=== PATIENT | male | born 1975 | race Caucasian/White ===

== ENCOUNTER 2017-05-17 12:55 | Emergency (ER) | payer MEDICAID ==
[~2017-05-17] VITALS: Ht 167.6 cm; Wt 75.0 kg
[2017-05-17 12:59] VITALS: Ht 167.6 cm; Wt 75.0 kg
[2017-05-17] MEDS ORDERED: KETOROLAC 30 MG INJ IV STA (13:55)
--- NOTE | 2017-05-17 14:34 | RADRPT ---
PROCEDURE: CT Abdomen and Pelvis without contrast. CLINICAL INDICATION: Periumbilical pain. TECHNIQUE: CT scan of the abdomen and pelvis without contrast was performed on a multi-detector hi gh-resolution CT scanner. Coronal and sagittal reformatted images were obtained from the axial sour ce images. Images were reviewed on a high-resolution PACS workstation. The total exam CTDI equals 12 .0 mGy and the total exam DLP equals 704 mGy-cm. One or more of the following dose reduction techniques were utilized: - Automated exposure control - Adjustment of the mA and/or kV according to patient size - Use of iterative reconstruction technique COMPARISON: None. FINDINGS: Lower Chest: There is no basilar consolidation or effusion. The heart is within normal limits in si ze. A patent foramen ovale is noted (series 3, image 8). Hepatobiliary: There is diffuse fatty infiltration of the liver. The gallbladder is present. There is no intrahepatic or extrahepatic biliary dilatation. Spleen: Unremarkable. Pancreas: Unremarkable. Adrenal Glands: Unremarkable. Kidneys: Unremarkable. Bowel: There is variant intestine malrotation with the small bowel located predominately within the right hemiabdomen and the colon predominately in the left hemiabdomen. There is sigmoid diverticulos is with associated bowel wall thickening and adjacent inflammatory stranding consistent with diverti culitis. No drainable fluid collection is identified. No bowel obstruction. The appendix is unremar kable. Pelvic Organs: The prostate contains a calcification. Peritoneum/Mesentery: Unremarkable. No pathologically enlarged lymph nodes. Bones/Soft Tissues: There are mild degenerative changes of the spine and right sacroiliac joint. Other: N/A. IMPRESSION: 1. Acute sigmoid diverticulitis. No drainable fluid collection identified. 2. Variant intestinal malrotation with small bowel located predominately within the right hemiabdom en and colon predominately in the left hemiabdomen. 3. Hepatic steatosis. RPTAT:AAJJ Physician Quyen Date Time Electronically viewed and signed by Physician Quyen on 05/17/2017 14:34 QL/
--- NOTE | 2017-05-17 15:25 | ERD ---
ER Documentation Chief Complaint Chief Complaint abdominal pain x 2 days HPI This is a 32-year-old male who presents emergency department today complaining of lower abdominal pain that started yesterday. Patient states he thinks he had a fever yesterday. States he has a history of constipation and feels constipated at this time. States he was given pills by his primary care clinic but is unsure of the name. Denies any nausea vomiting. Denies any dysuria, hematuria. Denies any testicular pain. ROS All systems reviewed and are negative except as per history of present illness. Medications Home Meds Active Scripts Acetaminophen* (Tylophen*) 500 Mg Capsule, 1 CAP PO Q6H Y for PAIN AND OR ELEVATED TEMP, #30 CAP Prov:JEAN PAUL LAZO PA-C 05/17/17 Ciprofloxacin Hcl* (Ciprofloxacin Hcl*) 500 Mg Tablet, 500 MG PO BID for 10 Days , TAB Prov:JEAN PAUL LAZO PA-C 05/17/17 Metronidazole* (Flagyl*) 500 Mg Tablet, 500 MG PO TID for 10 Days, TAB Prov:JEAN PAUL LAZO PA-C 05/17/17 Naproxen* (Naprosyn*) 500 Mg Tablet, 500 MG PO BID Y for PAIN AND/OR INFLAMMATION, #30 TAB Prov:JEAN PAUL LAZO PA-C 05/17/17 Docusate Sodium* (Colace*) 100 Mg Capsule, 100 MG PO TID, #30 CAP Prov:JEAN PAUL LAZO PA-C 05/17/17 Polyethylene Glycol* (Miralax*) 17 Gm Powd.pack, 17 GM PO DAILY, #15 Prov:JEAN PAUL LAZO PA-C 05/17/17 Allergies Allergies: Coded Allergies: No Known Allergy (Unverified , 05/17/17) PMhx/Soc Medical and Surgical Hx: pt denies Medical Hx, pt denies Surgical Hx Hx Alcohol Use: No Hx Substance Use: No Hx Tobacco Use: No Smoking Status: Never smoker Physical Exam Vitals Vital Signs Date Time Temp Pulse Resp B/P Pulse Ox O2 Delivery O2 Flow Rate FiO2 05/17/17 12:59 98.3 68 18 140/90 96 Physical Exam Const: NAD Head: Atraumatic Eyes: Normal Conjunctiva ENT: Normal External Ears, Nose and Mouth. Neck: Full range of motion..~ No meningismus. Resp: Clear to auscultation bilaterally Cardio: Regular rate and rhythm, no murmurs Abd: Soft, left lower quadrant pain non distended. Normal bowel sounds. No tenderness at McBurney's Skin: No petechiae or rashes Back: No midline or flank tenderness Ext: No cyanosis, or edema Neur: Awake and alert Psych: Normal Mood and Affect Result Diagram: 05/17/17 1410 05/17/17 1410 Results 24 hrs Laboratory Tests Test 05/17/17 14:10 White Blood Count 11.510^3/ul Red Blood Count 5.1110^6/ul Hemoglobin 15.4g/dl Hematocrit 44.2% Mean Corpuscular Volume 86.5fl Mean Corpuscular Hemoglobin 30.1pg Mean Corpuscular Hemoglobin Concent 34.8g/dl Red Cell Distribution Width 12.3% Platelet Count 07809^3/UL Mean Platelet Volume 10.9fl Neutrophils % 73.2% Lymphocytes % 15.3% Monocytes % 9.5% Eosinophils % 0.9% Basophils % 0.5% Nucleated Red Blood Cells % 0.0/100WBC Neutrophils # 8.410^3/ul Lymphocytes # 1.810^3/ul Monocytes # 1.110^3/ul Eosinophils # 0.110^3/ul Basophils # 0.110^3/ul Nucleated Red Blood Cells # 0.010^3/ul Urine Color YELLOW Urine Clarity CLEAR Urine pH 5.0 Urine Specific [place] 1.029 Urine Ketones NEGATIVEmg/dL Urine Nitrite NEGATIVEmg/dL Urine Bilirubin NEGATIVEmg/dL Urine Urobilinogen 1+mg/dL Urine Leukocyte Esterase NEGATIVELeu/ul Urine Hemoglobin NEGATIVEmg/dL Urine Glucose NEGATIVEmg/dL Urine Total Protein NEGATIVEmg/dl Sodium Level 143mmol/L Potassium Level 4.5mmol/L Chloride Level 102mmol/L Carbon Dioxide Level 28mmol/L Anion Gap 18 Blood Urea Nitrogen 14mg/dl Creatinine 0.89mg/dl Glucose Level 91mg/dl Calcium Level 9.2mg/dl Total Bilirubin 1.0mg/dl Direct Bilirubin 0.00mg/dl Indirect Bilirubin 1.0mg/dl Aspartate Amino Transf (AST/SGOT) 29IU/L Alanine Aminotransferase (ALT/SGPT) 75IU/L Alkaline Phosphatase 84IU/L Total Protein 8.1g/dl Albumin 4.9g/dl Globulin 3.20g/dl Albumin/Globulin Ratio 1.53 Lipase 77U/L Current Medications Medications (Trade) Dose Ordered Sig/Isaias Route PRN Reason Start Time Stop Time Status Last Admin Dose Admin Ketorolac Tromethamine (Toradol) 30 mg ONCE STAT IV 05/17/17 13:55 05/17/17 13:56 DC 05/17/17 14:11 DIAGNOSTIC IMAGING REPORT Patient: BERTIN PHILIPPE : 1975 Age: 42 Sex: M MR #: [id number] DOS: 05/17/17 1355 Ordering MD: JEAN PAUL LAZO PA-C Location: [facility] Room/Bed: PROCEDURE: CT Abdomen and Pelvis without contrast. CLINICAL INDICATION: Periumbilical pain. TECHNIQUE: CT scan of the abdomen and pelvis without contrast was performed on a multi-detector high-resolution CT scanner. Coronal and sagittal reformatted images were obtained from the axial source images. Images were reviewed on a high-resolution PACS workstation. The total exam CTDI equals 12.0 mGy and the total exam DLP equals 704 mGy-cm. One or more of the following dose reduction techniques were utilized: - Automated exposure control - Adjustment of the mA and/or kV according to patient size - Use of iterative reconstruction technique COMPARISON: None. FINDINGS: Lower Chest: There is no basilar consolidation or effusion. The heart is within normal limits in size. A patent foramen ovale is noted (series 3, image 8 ). Hepatobiliary: There is diffuse fatty infiltration of the liver. The gallbladder is present. There is no intrahepatic or extrahepatic biliary dilatation. Spleen: Unremarkable. Pancreas: Unremarkable. Adrenal Glands: Unremarkable. Kidneys: Unremarkable. Bowel: There is variant intestine malrotation with the small bowel located predominately within the right hemiabdomen and the colon predominately in the left hemiabdomen. There is sigmoid diverticulosis with associated bowel wall thickening and adjacent inflammatory stranding consistent with diverticulitis. No drainable fluid collection is identified. No bowel obstruction. The appendix is unremarkable. Pelvic Organs: The prostate contains a calcification. Peritoneum/Mesentery: Unremarkable. No pathologically enlarged lymph nodes. Bones/Soft Tissues: There are mild degenerative changes of the spine and right sacroiliac joint. Other: N/A. IMPRESSION: 1. Acute sigmoid diverticulitis. No drainable fluid collection identified. 2. Variant intestinal malrotation with small bowel located predominately within the right hemiabdomen and colon predominately in the left hemiabdomen. 3. Hepatic steatosis. RPTAT:AAJJ Cindy Christopher Physician Date Time Electronically viewed and signed by Cindy Christopher Physician on 05/17/2017 14:34 QL/ CC: JEAN PAUL LAZO PA-C Procedures/MDM This is a 42-year-old male who presents the emergency department today complaining of lower abdominal pain for the past 2 days. Patient indicated that he had a fever yesterday. Today patient is afebrile. His vital signs are within normal limits. On physical exam patient had left lower quadrant pain and specific tenderness to palpation. He does have a history of constipation and given this obtain laboratory workup as well as imaging. The patient's first visit to the emergency department. Laboratory workup shows a mildly elevated white blood cell count. He is not anemic. Platelets are within normal limits. Electro lites are within normal limits. Glucose is within normal limits. ALT is mildly elevated otherwise liver enzymes are within normal limits. Lipase is within normal limits. UA is negative for infection. CT abdomen pelvis shows acute sigmoid diverticulitis associated bowel wall thickening and adjacent inflammatory stranding consistent with diverticulitis.. There is no drainable fluid collection identified. There is variant intestinal malrotation with small bowel located predominantly within the right ralf-abdomen and colon predominantly in the left hemiabdomen. There is hepatic steatosis. There is no no bowel obstruction. Appendix is unremarkable. Symptoms at this time is consistent with acute diverticulitis. She is afebrile and otherwise well-appearing. He was given Toradol here in the emergency department for pain given his history of constipation. Patient reported that pain had significantly improved. I discussed the patient with Dr. Yañez and we feel that patient is suitable for outpatient management. Patient was given a prescription for Naprosyn, Tylenol, MiraLAX and Colace for the constipation and Cipro and Flagyl for the diverticulitis. I have explained the results to the patient. He has been instructed return in next 1-2 days for a recheck or return sooner if symptoms persist or worsen or he develops any fevers or vomiting. Patient understood. At this time the patient is stable for discharge and outpatient management. Patient should follow up with their PCP in the next 1-2 days. They may return to the emergency department sooner for any persistent or worsening of symptoms. Patient understood and agreed with the plan. Departure Diagnosis: Primary Impression: Diverticulitis Condition: Fair JEAN PAUL LAZO PA-C May 17, 2017 15:25
[2017-05-17] MEDS ORDERED: POLY17PO6 PO (15:31)
[2017-05-17] MEDS ORDERED: NAPR-260 PO (15:32)
[2017-05-17] MEDS ORDERED: DOCU-144 PO (15:32)
[2017-05-17] MEDS ORDERED: METR500T PO (15:33)
[2017-05-17] MEDS ORDERED: CIPR500T4 PO (15:34)
[2017-05-17] MEDS ORDERED: ACET500C5 PO (15:35)
== END 2017-05-17 15:53 | disposition home or self-care (01) ==
LOC: FTE 12:55
DX: K57.32 Diverticulitis of large intestine without perforation or abscess without bleeding (principal)
CPT/HCPCS: 36415; 74176; 80053; 81003; 83690; 85025; 96374; J1885; Z7502